=== PATIENT | female | born 1960 | race Caucasian/White ===

== ENCOUNTER 2023-09-20 20:38 | Emergency (ER) | payer BC ==
[2023-09-20] MEDS: Sodium Chloride 0.9% 1,000 ML IV ONE (20:54)
[2023-09-20] MEDS: Ondansetron 4 MG/2 ML SDV IVPUSH ONE (20:55)
[2023-09-20] MEDS: Ondansetron 4 MG/2 ML SDV ONE (21:36)
[2023-09-20] MEDS: Sodium Chloride 0.9% 1,000 ML ONE (21:37)
[2023-09-20] MEDS: Diphtheria,Pertussis(Acell),Tetanus Vaccine 0.5 ML Syringe IM ONE (22:17)
[2023-09-20] MEDS: Lidocaine 1% 10 ML MDV INJECT ONE (22:17)
[2023-09-20] MEDS: Acetaminophen 325 MG Tab PO ONE (23:27)
[2023-09-21] MEDS: Acetaminophen 325 MG Tab PO ONE (04:40)
== END 2023-09-21 04:49 | disposition home or self-care (01) ==
LOC: JD.ED 20:38
DX: S06.6X9A Traumatic subarachnoid hemorrhage with loss of consciousness of unspecified duration, initial encounter (principal); S01.01XA Laceration without foreign body of scalp, initial encounter; Z23 Encounter for immunization; Z79.899 Other long term (current) drug therapy; W22.8XXA Striking against or struck by other objects, initial encounter; Y93.52 Activity, horseback riding
CPT/HCPCS: 12001; 12002; 70450; 70450-26; 72125; 72125-26; 90471; 90715; 96361; 96374; 99283; 99284-25; A9270-GY; J2405; J3490; J7030